=== PATIENT | male | born 1985 | race Caucasian/White ===

== ENCOUNTER 2018-07-04 10:18 | Emergency (ER) | payer MEDICAID ==
[~2018-07-04] VITALS: Ht 188 cm; Wt 90.7 kg
[2018-07-04 10:30] VITALS: BP 152/90
--- NOTE | 2018-07-04 12:04 | NUR ---
PATIENT A/OX3, SEEN BY BRAILLE OPERATOR NOMI. REFUSED TO GIVE ADDRESS. SIGNED HOMELESS WAIVER FORM. PATIENT REFUSED TO SIGN DISCHARGE PAPERWORKS. DISCHARGE INSTRUCTIONS PROVIDED. PATIENT UNCOOPERATIVE, REFUSING TREATMENT. LEFT THE FACILITY IN STABLE CONDITION.
--- NOTE | 2018-07-04 12:12 | NUR ---
Social work consult: Pt is a 32 year old male brought in to ER by law enforcement after being found wandering at an apartment complex and in an altered state. lot worker met with pt, pt was spontaneous state, pt was alert and oriented to person, and place. Pt stated that his mother Olimpia Heath is his emergency contact and provided her contact number ([phone]) pt would not provide current address of residency. Pt declined to answer social workers questions. Pt stated he started using meth 10 years ago however is on an off, pt would not disclose what lead to his use today. lot worker provided pt with substance abuse resources, mental health clinics resources, behavioral and substance abuse referrals and clinics for screenings. lot worker also provided pt with skilled nursing resources, hot meal resources. Pt would not disclose where he will leave to once discharge from ER. Pt signed homeless waiver, original given to [facility].
== END 2018-07-04 12:06 | disposition home or self-care (01) ==
LOC: ER 10:18
DX: F15.10 Other stimulant abuse, uncomplicated (principal); E03.9 Hypothyroidism, unspecified